=== PATIENT | male | born 2000 | race American Indian/Alaskan Native ===

== ENCOUNTER 2019-08-28 15:18 | Emergency (ER) | payer OTHER ==
[2019-08-28 16:09] VITALS: BP 120/69
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
--- NOTE | 2019-08-28 17:57 | XRay Report ---
THORACIC SPINE 2 VIEWS INDICATION / CLINICAL INFORMATION: Thoracic back pain. COMPARISON: None available. FINDINGS: BONES / JOINT(S): The vertebral body heights and disc spaces are well-maintained. The pedicles are in tact. There is no evidence of fracture, subluxation or destructive lesion. SOFT TISSUES: No significant abnormality. ADDITIONAL FINDINGS: None. IMPRESSION: Negative study. Signer Name: Salvador Sandoval MD Signed: 08/28/2019 5:53 PM Workstation Name: [id number]
[2019-08-28] MEDS ORDERED: ACETAMINOPHEN 500 MG TAB PO ONE (20:03)
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
== END 2019-08-28 20:30 | disposition home or self-care (01) ==
LOC: ED 15:18
DX: S29.012A Strain of muscle and tendon of back wall of thorax, initial encounter (principal); Z79.899 Other long term (current) drug therapy; V49.59XA Passenger injured in collision with other motor vehicles in traffic accident, initial encounter; Y93.89 Activity, other specified; Y92.488 Other paved roadways as the place of occurrence of the external cause; Y99.8 Other external cause status
CPT/HCPCS: 72070; 72072